=== PATIENT | female | born 1980 | race African-American/Black ===

== ENCOUNTER 2018-10-06 22:49 | Inpatient (IN) | payer MEDICAID ==
[~2018-10-06 22:49] MED LIST: CARBOPROST 250 MCG INJ
[2018-10-06] MEDS ORDERED: LACTATED RINGER'S 1,000 ML IV (23:38)
[2018-10-07] MEDS ORDERED: BUTORPHANOL 2 MG INJ IV
[2018-10-07] MEDS ORDERED: LIDOCAINE 1% (MPF) 30 ML INJ INJ
[2018-10-07] MEDS ORDERED: OXYTOCIN 30 UNITS/LR 500 ML IV
[2018-10-07] MEDS ORDERED: MINERAL OIL LIGHT 10 ML VIAL TOP
[2018-10-07] MEDS ORDERED: METHYLERGONOVINE 0.2 MG INJ IM
[2018-10-07] MEDS: LACTATED RINGER'S 1,000 ML IV ×4 (00:19→15:21)
[2018-10-07 00:43] LABS: ADD MAN DIFF? NO
[2018-10-07 00:50] LABS: BASOPHILS % 0.2 % (0.0-2.0); EOSINOPHILS # 0.1 10^3/ul (0.0-0.5); EOSINOPHILS % 1.7 % (0.0-7.0); HEMATOCRIT 35.6 % (37.0-47.0); HEMOGLOBIN 11.7 g/dl (12.0-16.0); LYMPHOCYTES # 1.2 10^3/ul (0.8-2.9); LYMPHOCYTES % 23.6 % (15.0-51.0); MEAN CORPUSCULAR HEMOGLOBIN 27.6 pg (29.0-33.0); MEAN CORPUSCULAR HGB CONC 32.9 g/dl (32.0-37.0); MEAN PLATELET VOLUME 11.6 fl (7.4-10.4); MONOCYTE # 0.4 10^3/ul (0.3-0.9); MONOCYTES % 8.5 % (0.0-11.0); NEUTROPHIL # 3.4 10^3/ul (1.6-7.5); NEUTROPHILS % 65.8 % (39.0-77.0); PLATELET COUNT 185 10^3/UL (140-415); RED BLOOD COUNT 4.24 10^6/ul (4.20-5.40); RED CELL DISTRIBUTION WIDTH 15.3 % (11.5-14.5)
[2018-10-07 00:50] LABS: WHITE BLOOD COUNT 5.2 10^3/ul (4.8-10.8)
[2018-10-07 01:12] LABS: INR 0.85; PARTIAL THROMBOPLASTIN TIME 26.7 Sec (23.0-35.0); PROTIME 11.7 Sec (11.9-14.9); PT RATIO 0.9
[2018-10-07] MEDS: OXYTOCIN 30 UNITS/LR 500 ML IV ×3 (01:36→15:04)
[2018-10-07 01:40] LABS: HEPATITIS B SURFACE ANTIGEN NEGATIVE (NEGATIVE)
[2018-10-07] MEDS ORDERED: FENTAnyl 50 MCG/ML VIAL (11:48)
[2018-10-07] MEDS ORDERED: FENTAnyl 2MCG/ML-ROPIV 0.2% 100 ML (11:48)
[2018-10-07] MEDS: MISOPROSTOL 200 MCG TAB PR ×2 (13:03→13:43)
[2018-10-07] MEDS: CARBOPROST 250 MCG INJ IM (13:39)
[2018-10-07 14:01] LABS: ADD MAN DIFF? NO
[2018-10-07 14:03] LABS: WHITE BLOOD COUNT 17.5 10^3/ul (4.8-10.8)
[2018-10-07 14:03] LABS: BASOPHILS % 0.2 % (0.0-2.0); EOSINOPHILS # 0.1 10^3/ul (0.0-0.5); EOSINOPHILS % 0.8 % (0.0-7.0); HEMATOCRIT 35.4 % (37.0-47.0); HEMOGLOBIN 11.9 g/dl (12.0-16.0); LYMPHOCYTES # 1.7 10^3/ul (0.8-2.9); LYMPHOCYTES % 9.4 % (15.0-51.0); MEAN CORPUSCULAR HEMOGLOBIN 28.3 pg (29.0-33.0); MEAN CORPUSCULAR HGB CONC 33.6 g/dl (32.0-37.0); MEAN CORPUSCULAR VOLUME 84.3 fl (82.0-101.0); MEAN PLATELET VOLUME 10.5 fl (7.4-10.4); MONOCYTE # 0.4 10^3/ul (0.3-0.9); MONOCYTES % 2.5 % (0.0-11.0); NEUTROPHIL # 15.1 10^3/ul (1.6-7.5); NEUTROPHILS % 86.5 % (39.0-77.0); PLATELET COUNT 153 10^3/UL (140-415); RED CELL DISTRIBUTION WIDTH 15.8 % (11.5-14.5)
[2018-10-07] MEDS ORDERED: ONDANSETRON 4 MG INJ (14:12)
[2018-10-07 14:21] LABS: ALBUMIN 3.6 g/dl (3.3-4.9); ALBUMIN/GLOBULIN RATIO 1.12; ALKALINE PHOSPHATASE 184 IU/L (42-121); ANION GAP 7 (5-13); ASPARTATE AMINO TRANSFERASE 32 IU/L (15-46); BILIRUBIN,INDIRECT 1.8 mg/dl (0-1.1); BILIRUBIN,TOTAL 1.8 mg/dl (0.2-1.3); BLOOD UREA NITROGEN 7 mg/dl (7-20); CALCIUM 9.4 mg/dl (8.4-10.2); CARBON DIOXIDE 23 mmol/L (21-31); CHLORIDE 107 mmol/L (97-110); CREATININE 0.67 mg/dl (0.44-1.00); Estimated GFR > 60 mL/min (>60); GLUCOSE 93 mg/dl (70-220); POTASSIUM 4.3 mmol/L (3.5-5.1); SODIUM 137 mmol/L (135-144); TOTAL PROTEIN 6.8 g/dl (6.1-8.1); URIC ACID 5.6 mg/dl (3.1-7.9)
[2018-10-07 14:24] LABS: INR 1.63; PROTIME 19.4 Sec (11.9-14.9); PT RATIO 1.5
[2018-10-07 14:25] LABS: ALANINE AMINOTRANSFERASE < 6 IU/L (13-69); PARTIAL THROMBOPLASTIN TIME 56.8 Sec (23.0-35.0)
[2018-10-07] MEDS: FAMOTIDINE 20 MG INJ IV (14:37)
[2018-10-07] MEDS: ONDANSETRON 4 MG INJ IV (14:38)
[2018-10-07] MEDS ORDERED: METOCLOPRAMIDE 10 MG INJ (14:51)
[2018-10-07 15:03] LABS: IMMEDIATE SPIN CROSSMATCH 1
[2018-10-07 15:10] LABS: RAPID PLASMA REAGIN NONREACTIVE (NR)
[2018-10-07] MEDS: FENTAnyl 50 MCG/ML VIAL IV (15:22)
[2018-10-07] MEDS: METOCLOPRAMIDE 10 MG INJ IV (15:22)
[2018-10-07] MEDS ORDERED: LIDOCAINE 1% (MDV) 20 ML INJ (15:38)
[2018-10-07] MEDS ORDERED: MIDAZOLAM 1 MG/ML 2 ML INJ ×2 (15:38)
[2018-10-07] MEDS ORDERED: SUCCINYLCHOLINE CHLORIDE 100 MG/5 ML SYG IV (15:38)
[2018-10-07] MEDS ORDERED: ETOMIDATE 20 MG INJ (15:38)
[2018-10-07] MEDS ORDERED: ROCURONIUM 50 MG INJ (15:38)
[2018-10-07] MEDS ORDERED: PHENYLephrine (100 MCG/ML) 10ML SYG (16:25)
[2018-10-07] MEDS ORDERED: CA CHLORIDE 10% 10 ML SYRINGE (16:26)
[2018-10-07 16:32] LABS: ABNORMAL IP MESSAGE 1; HEMATOCRIT 21.2 % (37.0-47.0); HEMOGLOBIN 7.1 g/dl (12.0-16.0); MEAN CORPUSCULAR HEMOGLOBIN 27.7 pg (29.0-33.0); MEAN CORPUSCULAR HGB CONC 33.5 g/dl (32.0-37.0); MEAN CORPUSCULAR VOLUME 82.8 fl (82.0-101.0); MEAN PLATELET VOLUME 10.8 fl (7.4-10.4); PLATELET COUNT 107 10^3/UL (140-415); RED BLOOD COUNT 2.56 10^6/ul (4.20-5.40); RED CELL DISTRIBUTION WIDTH 14.9 % (11.5-14.5)
[2018-10-07 16:32] LABS: WHITE BLOOD COUNT 14.5 10^3/ul (4.8-10.8)
[2018-10-07 16:39] LABS: POSITIVE DIFF @See below
[2018-10-07 16:41] LABS: ADD MAN DIFF? YES
[2018-10-07 16:54] LABS: INR 1.65; PROTIME 19.6 Sec (11.9-14.9); PT RATIO 1.5
[2018-10-07 16:55] LABS: PARTIAL THROMBOPLASTIN TIME 45.3 Sec (23.0-35.0)
[2018-10-07 17:10] LABS: FIBRINOGEN < 60.0 mg/dl (207-461)
[2018-10-07] MEDS ORDERED: THROMBIN 5000 UNIT VIAL (17:18)
[2018-10-07] MEDS ORDERED: DEXAMETHASONE 4 MG/ML 1 ML INJ (17:20)
[2018-10-07 17:21] LABS: ANISOCYTOSIS 2+ (0-0); GIANT THROMBO% (M) 2 % (0-0); LYMPHOCYTES % (M) 7 % (15-51); MICROCYTOSIS 2+ (0-0); MONOCYTE #M 0.2 10^3/ul (0.3-0.9); MONOCYTES % (M) 2 % (0-11); SEGMENTED NEUTROPHILS (M) % 91 % (39-77)
[2018-10-07] MEDS ORDERED: HYDROmorphONE 2 MG/ML SYG (17:39)
[2018-10-07] MEDS ORDERED: ROPIVACAINE 0.5 % 30 ML VIAL (17:44)
[2018-10-07 17:50] LABS: ADD MAN DIFF? NO
[2018-10-07 17:55] LABS: ABNORMAL IP MESSAGE 1; BASOPHILS % 0.2 % (0.0-2.0); EOSINOPHILS % 0.1 % (0.0-7.0); HEMATOCRIT 25.3 % (37.0-47.0); HEMOGLOBIN 8.6 g/dl (12.0-16.0); LYMPHOCYTES # 0.6 10^3/ul (0.8-2.9); LYMPHOCYTES % 3.1 % (15.0-51.0); MEAN CORPUSCULAR HEMOGLOBIN 29.1 pg (29.0-33.0); MEAN CORPUSCULAR VOLUME 85.5 fl (82.0-101.0); MEAN PLATELET VOLUME 10.2 fl (7.4-10.4); MONOCYTES % 5.5 % (0.0-11.0); NEUTROPHIL # 16.8 10^3/ul (1.6-7.5); NEUTROPHILS % 90.3 % (39.0-77.0); PLATELET COUNT 85 10^3/UL (140-415); RED BLOOD COUNT 2.96 10^6/ul (4.20-5.40); RED CELL DISTRIBUTION WIDTH 14.6 % (11.5-14.5)
[2018-10-07 17:55] LABS: WHITE BLOOD COUNT 18.6 10^3/ul (4.8-10.8)
[2018-10-07 18:10] LABS: ALANINE AMINOTRANSFERASE 23 IU/L (13-69); ALBUMIN 1.6 g/dl (3.3-4.9); ALBUMIN/GLOBULIN RATIO 0.84; ALKALINE PHOSPHATASE 58 IU/L (42-121); ANION GAP 2 (5-13); ASPARTATE AMINO TRANSFERASE 28 IU/L (15-46); BILIRUBIN,INDIRECT 1.5 mg/dl (0-1.1); BILIRUBIN,TOTAL 1.5 mg/dl (0.2-1.3); BLOOD UREA NITROGEN 9 mg/dl (7-20); CALCIUM 8.5 mg/dl (8.4-10.2); CARBON DIOXIDE 21 mmol/L (21-31); CHLORIDE 113 mmol/L (97-110); CREATININE 0.49 mg/dl (0.44-1.00); Estimated GFR > 60 mL/min (>60); GLUCOSE 139 mg/dl (70-220); POTASSIUM 4.1 mmol/L (3.5-5.1); SODIUM 136 mmol/L (135-144); TOTAL PROTEIN 3.5 g/dl (6.1-8.1)
[2018-10-07] MEDS ORDERED: SUGAMMADEX SODIUM 200 MG/2 ML VIAL IV (18:10)
[2018-10-07 18:14] LABS: INR 1.57; PARTIAL THROMBOPLASTIN TIME 35.2 Sec (23.0-35.0); PROTIME 18.9 Sec (11.9-14.9); PT RATIO 1.5
[2018-10-07] MEDS ORDERED: HYDROmorphONE 1 MG/5 ML IV SYRINGE IV ×3 (19:00)
[2018-10-07] MEDS ORDERED: METOCLOPRAMIDE 10 MG INJ IV (19:00)
[2018-10-07] MEDS ORDERED: ONDANSETRON 4 MG INJ IV (19:00)
[2018-10-07] MEDS ORDERED: MEPERIDINE 25 MG INJ IV (19:00)
[2018-10-07] MEDS ORDERED: HYDROCODONE/APAP (5/325) TAB PO ×2 (21:00)
[2018-10-07 23:53] LABS: ADD MAN DIFF? NO
[2018-10-08 00:05] LABS: ALANINE AMINOTRANSFERASE 28 IU/L (13-69); ALBUMIN 2.1 g/dl (3.3-4.9); ALBUMIN/GLOBULIN RATIO 0.95; ALKALINE PHOSPHATASE 63 IU/L (42-121); ANION GAP 2 (5-13); ASPARTATE AMINO TRANSFERASE 32 IU/L (15-46); BLOOD UREA NITROGEN 8 mg/dl (7-20); CALCIUM 8.2 mg/dl (8.4-10.2); CARBON DIOXIDE 24 mmol/L (21-31); CHLORIDE 110 mmol/L (97-110); CREATININE 0.54 mg/dl (0.44-1.00); Estimated GFR > 60 mL/min (>60); GLUCOSE 123 mg/dl (70-220); POTASSIUM 4.2 mmol/L (3.5-5.1); SODIUM 136 mmol/L (135-144); TOTAL PROTEIN 4.3 g/dl (6.1-8.1)
[2018-10-08 00:07] LABS: INR 1.13; PROTIME 14.6 Sec (11.9-14.9); PT RATIO 1.1
[2018-10-08 00:08] LABS: PARTIAL THROMBOPLASTIN TIME 27.5 Sec (23.0-35.0)
[2018-10-08 00:19] LABS: IMMEDIATE SPIN CROSSMATCH 1 10
[2018-10-08] MEDS: morphine 2 MG INJ IV (00:34)
[2018-10-08] MEDS: LACTATED RINGER'S 1,000 ML IV ×2 (00:44→15:53)
[2018-10-08 00:45] LABS: HEMATOCRIT 22.3 % (37.0-47.0); HEMOGLOBIN 7.7 g/dl (12.0-16.0); MEAN CORPUSCULAR HEMOGLOBIN 28.9 pg (29.0-33.0); MEAN CORPUSCULAR HGB CONC 34.5 g/dl (32.0-37.0); MEAN CORPUSCULAR VOLUME 83.8 fl (82.0-101.0); RED BLOOD COUNT 2.66 10^6/ul (4.20-5.40); RED CELL DISTRIBUTION WIDTH 14.6 % (11.5-14.5)
[2018-10-08 00:45] LABS: WHITE BLOOD COUNT 13.4 10^3/ul (4.8-10.8)
[2018-10-08 00:46] LABS: BASOPHILS % 0.1 % (0.0-2.0); LYMPHOCYTES # 0.6 10^3/ul (0.8-2.9); LYMPHOCYTES % 4.3 % (15.0-51.0); MEAN PLATELET VOLUME 10.5 fl (7.4-10.4); MONOCYTE # 0.4 10^3/ul (0.3-0.9); MONOCYTES % 3.1 % (0.0-11.0); NEUTROPHIL # 12.3 10^3/ul (1.6-7.5); NEUTROPHILS % 92.1 % (39.0-77.0); PLATELET COUNT 128 10^3/UL (140-415)
[2018-10-08] MEDS ORDERED: HYDROmorphONE 0.2 MG/ML PCA IV (01:30)
[2018-10-08] MEDS ORDERED: morphine 4 MG/ML VIAL IV (01:30)
[2018-10-08] MEDS ORDERED: ACETAMINOPHEN 500 MG TAB PO (02:00)
[2018-10-08] MEDS ORDERED: ONDANSETRON 4 MG INJ IV (02:00)
[2018-10-08] MEDS ORDERED: NALOXONE (0.4 MG/ML) INJ IV (02:00)
[2018-10-08 02:30] LABS: ADD UMIC NO; UR ASCORBIC ACID NEGATIVE (NEGATIVE); UR BILIRUBIN (Dip) NEGATIVE (NEGATIVE); UR BLOOD (Dip) NEGATIVE (NEGATIVE); UR CLARITY CLEAR (CLEAR); UR COLOR YELLOW (YELLOW); UR GLUCOSE (Dip) NEGATIVE (NEGATIVE); UR KETONES (Dip) NEGATIVE (NEGATIVE); UR LEUKOCYTE ESTERASE (Dip) NEGATIVE Leu/ul (NEGATIVE); UR NITRITE (Dip) NEGATIVE (NEGATIVE); UR SPECIFIC GRAVITY (Dip) 1.011 (1.003-1.030); UR TOTAL PROTEIN (Dip) NEGATIVE (NEGATIVE); UR UROBILINOGEN (Dip) NEGATIVE (NEGATIVE)
[2018-10-08 02:50] LABS: TYPE AND SCREEN 1
[2018-10-08] MEDS: HYDROmorphONE 0.2 MG/ML PCA IV ×2 (02:59→13:06)
[2018-10-08 05:15] LABS: ABNORMAL IP MESSAGE 1; HEMATOCRIT 17.3 % (37.0-47.0); MEAN CORPUSCULAR HEMOGLOBIN 29.1 pg (29.0-33.0); MEAN CORPUSCULAR HGB CONC 34.7 g/dl (32.0-37.0); MEAN PLATELET VOLUME 10.6 fl (7.4-10.4); PLATELET COUNT 108 10^3/UL (140-415); RED BLOOD COUNT 2.06 10^6/ul (4.20-5.40); RED CELL DISTRIBUTION WIDTH 14.4 % (11.5-14.5)
[2018-10-08 05:15] LABS: WHITE BLOOD COUNT 10.9 10^3/ul (4.8-10.8)
[2018-10-08 05:19] LABS: PLATELET COUNT 108 10^3/UL (140-415)
[2018-10-08 05:30] LABS: POSITIVE DIFF @See below
[2018-10-08 05:32] LABS: ADD MAN DIFF? YES
[2018-10-08 05:35] LABS: INR 1.09; PROTIME 14.2 Sec (11.9-14.9); PT RATIO 1.1
[2018-10-08 05:36] LABS: PARTIAL THROMBOPLASTIN TIME 28.3 Sec (23.0-35.0)
[2018-10-08 05:37] LABS: INR 1.08; PROTIME 14.1 Sec (11.9-14.9); PT RATIO 1.1
[2018-10-08 05:40] LABS: PARTIAL THROMBOPLASTIN TIME 33.7 Sec (23.0-35.0)
[2018-10-08 05:45] LABS: ALANINE AMINOTRANSFERASE 27 IU/L (13-69); ALBUMIN 2.1 g/dl (3.3-4.9); ALBUMIN/GLOBULIN RATIO 0.95; ALKALINE PHOSPHATASE 58 IU/L (42-121); ANION GAP 1 (5-13); ASPARTATE AMINO TRANSFERASE 30 IU/L (15-46); BILIRUBIN,INDIRECT 0.9 mg/dl (0-1.1); BILIRUBIN,TOTAL 0.9 mg/dl (0.2-1.3); BLOOD UREA NITROGEN 7 mg/dl (7-20); CALCIUM 8.1 mg/dl (8.4-10.2); CARBON DIOXIDE 27 mmol/L (21-31); CHLORIDE 109 mmol/L (97-110); CREATININE 0.57 mg/dl (0.44-1.00); Estimated GFR > 60 mL/min (>60); GLUCOSE 107 mg/dl (70-220); POTASSIUM 3.8 mmol/L (3.5-5.1); SODIUM 137 mmol/L (135-144); TOTAL PROTEIN 4.3 g/dl (6.1-8.1)
[2018-10-08 07:37] LABS: BAND NEUTROPHILS #M 0.1 10^3/ul (0.0-0.6); BAND NEUTROPHILS % (M) 1 % (0-4); GIANT THROMBO% (M) 1 % (0-0); LYMPHOCYTES % (M) 10 % (15-51); MONOCYTE #M 0.1 10^3/ul (0.3-0.9); MONOCYTES % (M) 1 % (0-11); PLATELET ESTIMATE DECREASED; SEG NEUT #M 9.6 10^3/ul (1.6-7.5); SEGMENTED NEUTROPHILS (M) % 88 % (39-77); SMUDGE%M 31 % (0-0)
[2018-10-08 09:21] LABS: IMMEDIATE SPIN CROSSMATCH 1
[2018-10-08] MEDS: PIPER-TAZO 3.375 GM IV (PMX) 100 ML IVPB ×2 (13:30→20:44)
[2018-10-08 15:17] LABS: ABNORMAL IP MESSAGE 1; HEMATOCRIT 23.2 % (37.0-47.0); MEAN CORPUSCULAR HEMOGLOBIN 28.6 pg (29.0-33.0); MEAN CORPUSCULAR HGB CONC 34.5 g/dl (32.0-37.0); MEAN CORPUSCULAR VOLUME 82.9 fl (82.0-101.0); PLATELET COUNT 83 10^3/UL (140-415); RED CELL DISTRIBUTION WIDTH 14.2 % (11.5-14.5)
[2018-10-08 15:17] LABS: WHITE BLOOD COUNT 8.7 10^3/ul (4.8-10.8)
[2018-10-08 15:30] LABS: POSITIVE DIFF @See below
[2018-10-08 15:31] LABS: ADD MAN DIFF? YES
[2018-10-08] MEDS: DIPHENHYDRAMINE 50 MG INJ IV (15:53)
[2018-10-08 17:07] LABS: ANISOCYTOSIS 1+ (0-0); GIANT THROMBO% (M) 1 % (0-0); LYMPHOCYTES #M 0.9 10^3/ul (0.8-2.9); LYMPHOCYTES % (M) 11 % (15-51); MICROCYTOSIS 1+ (0-0); MONOCYTE #M 0.5 10^3/ul (0.3-0.9); MONOCYTES % (M) 6 % (0-11); PLATELET ESTIMATE DECREASED; POLYCHROMASIA 1+ (0-0); SEGMENTED NEUTROPHILS (M) % 83 % (39-77); SMUDGE%M 3 % (0-0)
[2018-10-08] MEDS: KETOROLAC 30 MG INJ IV (17:18)
[2018-10-08 17:42] LABS: LACTATE DEHYDROGENASE 739 IU/L (313-618)
[2018-10-09] MEDS ORDERED: LANOLIN HPA 1 PKT TOP (01:00)
[2018-10-09] MEDS: HYDROCODONE/APAP (5/325) TAB PO ×6 (01:17→21:45)
[2018-10-09] MEDS: CEFAZOLIN 2 GM/50 ML (PMX) 50 ML IVPB ×3 (01:24→16:44)
[2018-10-09] MEDS: KETOROLAC 30 MG INJ IV ×2 (06:40→22:41)
[2018-10-09] MEDS: LACTATED RINGER'S 1,000 ML IV ×2 (06:41→13:30)
[2018-10-09 06:52] LABS: WHITE BLOOD COUNT 8.7 10^3/ul (4.8-10.8)
[2018-10-09 06:52] LABS: ABNORMAL IP MESSAGE 1; ADD MAN DIFF? NO; BASOPHILS % 0.1 % (0.0-2.0); EOSINOPHILS # 0.1 10^3/ul (0.0-0.5); EOSINOPHILS % 0.6 % (0.0-7.0); HEMATOCRIT 21.6 % (37.0-47.0); HEMOGLOBIN 7.4 g/dl (12.0-16.0); LYMPHOCYTES # 0.9 10^3/ul (0.8-2.9); LYMPHOCYTES % 9.8 % (15.0-51.0); MEAN CORPUSCULAR HEMOGLOBIN 28.9 pg (29.0-33.0); MEAN CORPUSCULAR HGB CONC 34.3 g/dl (32.0-37.0); MEAN CORPUSCULAR VOLUME 84.4 fl (82.0-101.0); MEAN PLATELET VOLUME 11.2 fl (7.4-10.4); MONOCYTE # 0.5 10^3/ul (0.3-0.9); MONOCYTES % 5.9 % (0.0-11.0); NEUTROPHIL # 7.3 10^3/ul (1.6-7.5); NEUTROPHILS % 83.1 % (39.0-77.0); RED BLOOD COUNT 2.56 10^6/ul (4.20-5.40); RED CELL DISTRIBUTION WIDTH 14.6 % (11.5-14.5)
[2018-10-09 06:58] LABS: PLATELET COUNT 79 10^3/UL (140-415); POSITIVE DIFF @See below
[2018-10-09 07:15] LABS: INR 0.94; PROTIME 12.7 Sec (11.9-14.9)
[2018-10-09 07:16] LABS: PARTIAL THROMBOPLASTIN TIME 28.7 Sec (23.0-35.0)
[2018-10-09 07:28] LABS: ANION GAP 2 (5-13); BLOOD UREA NITROGEN 7 mg/dl (7-20); CALCIUM 8.3 mg/dl (8.4-10.2); CARBON DIOXIDE 29 mmol/L (21-31); CHLORIDE 108 mmol/L (97-110); CREATININE 0.68 mg/dl (0.44-1.00); Estimated GFR > 60 mL/min (>60); GLUCOSE 99 mg/dl (70-220); MAGNESIUM 1.5 mg/dl (1.7-2.5); PHOSPHORUS 3.8 mg/dl (2.5-4.9); POTASSIUM 3.6 mmol/L (3.5-5.1); SODIUM 139 mmol/L (135-144)
[2018-10-09] MEDS ORDERED: DIPHTH/TET/ACEL PERTUSS (ADULT) 0.5 ML VIAL IM* (11:00)
[2018-10-09 12:26] LABS: HAPTOGLOBIN 20 mg/dL (43-212)
[2018-10-09] MEDS ORDERED: MAGNESIUM SULFATE 3 GM in DEXTROSE 5% 100 ML IVPB (17:30)
[2018-10-09] MEDS: MAGNESIUM SULFATE 1 GM/D5W 100 ML IVPB ×3 (18:12→21:44)
[2018-10-10] MEDS: HYDROCODONE/APAP (5/325) TAB PO ×5 (01:52→20:25)
[2018-10-10 06:15] LABS: ABNORMAL IP MESSAGE 1; HEMATOCRIT 19.5 % (37.0-47.0); MEAN CORPUSCULAR HGB CONC 34.9 g/dl (32.0-37.0); MEAN CORPUSCULAR VOLUME 85.9 fl (82.0-101.0); PLATELET COUNT 85 10^3/UL (140-415); RED BLOOD COUNT 2.27 10^6/ul (4.20-5.40); RED CELL DISTRIBUTION WIDTH 14.4 % (11.5-14.5)
[2018-10-10 06:15] LABS: WHITE BLOOD COUNT 6.7 10^3/ul (4.8-10.8)
[2018-10-10 06:21] LABS: HEMOGLOBIN 6.8 g/dl (12.0-16.0); POSITIVE DIFF @See below
[2018-10-10 06:22] LABS: ADD MAN DIFF? YES
[2018-10-10 06:27] LABS: ALANINE AMINOTRANSFERASE 20 IU/L (13-69); ALBUMIN 2.3 g/dl (3.3-4.9); ALBUMIN/GLOBULIN RATIO 0.92; ALKALINE PHOSPHATASE 70 IU/L (42-121); ANION GAP 3 (5-13); ASPARTATE AMINO TRANSFERASE 22 IU/L (15-46); BILIRUBIN,INDIRECT 0.4 mg/dl (0-1.1); BILIRUBIN,TOTAL 0.4 mg/dl (0.2-1.3); BLOOD UREA NITROGEN 5 mg/dl (7-20); CALCIUM 7.8 mg/dl (8.4-10.2); CARBON DIOXIDE 28 mmol/L (21-31); CHLORIDE 107 mmol/L (97-110); CREATININE 0.61 mg/dl (0.44-1.00); Estimated GFR > 60 mL/min (>60); GLUCOSE 76 mg/dl (70-220); LACTATE DEHYDROGENASE 552 IU/L (313-618); POTASSIUM 3.5 mmol/L (3.5-5.1); SODIUM 138 mmol/L (135-144); TOTAL PROTEIN 4.8 g/dl (6.1-8.1)
[2018-10-10 06:30] LABS: INR 0.99; PARTIAL THROMBOPLASTIN TIME 29.5 Sec (23.0-35.0); PROTIME 13.2 Sec (11.9-14.9)
[2018-10-10 08:16] LABS: D-DIMER > 10000.00 ng/ml (<460)
[2018-10-10 09:44] LABS: ANISOCYTOSIS 1+ (0-0); EOSINOPHILS % (M) 1 % (0-7); GIANT THROMBO% (M) 18 % (0-0); LYMPHOCYTES #M 0.7 10^3/ul (0.8-2.9); LYMPHOCYTES % (M) 11 % (15-51); MONOCYTE #M 0.3 10^3/ul (0.3-0.9); MONOCYTES % (M) 5 % (0-11); PLATELET ESTIMATE DECREASED; POIKILOCYTOSIS 1+ (0-0); SEGMENTED NEUTROPHILS (M) % 83 % (39-77); SMUDGE%M 5 % (0-0)
[2018-10-10] MEDS: BISACODYL 10 MG SUPP PR (11:07)
[2018-10-11] MEDS: KETOROLAC 30 MG INJ IV (00:42)
[2018-10-11] MEDS: HYDROCODONE/APAP (5/325) TAB PO ×2 (08:50→14:57)
[2018-10-11] MEDS: MEASLES,MUMPS,RUBELLA VACCINE INJ SC* (09:00)
[2018-10-11 09:14] LABS: ADD MAN DIFF? NO
[2018-10-11 09:18] LABS: WHITE BLOOD COUNT 6.8 10^3/ul (4.8-10.8)
[2018-10-11 09:18] LABS: BASOPHILS % 0.1 % (0.0-2.0); EOSINOPHILS # 0.1 10^3/ul (0.0-0.5); EOSINOPHILS % 1.6 % (0.0-7.0); HEMATOCRIT 22.4 % (37.0-47.0); HEMOGLOBIN 7.4 g/dl (12.0-16.0); LYMPHOCYTES # 0.8 10^3/ul (0.8-2.9); MEAN CORPUSCULAR HEMOGLOBIN 28.5 pg (29.0-33.0); MEAN CORPUSCULAR VOLUME 86.2 fl (82.0-101.0); MEAN PLATELET VOLUME 10.2 fl (7.4-10.4); MONOCYTE # 0.3 10^3/ul (0.3-0.9); MONOCYTES % 4.7 % (0.0-11.0); NEUTROPHIL # 5.6 10^3/ul (1.6-7.5); NEUTROPHILS % 82.2 % (39.0-77.0); PLATELET COUNT 148 10^3/UL (140-415); RED CELL DISTRIBUTION WIDTH 14.1 % (11.5-14.5)
[2018-10-11] MEDS: DIPHTH/TET/ACEL PERTUSS (ADULT) 0.5 ML VIAL IM* (12:11)
[2018-10-11] MEDS: CYANOCOBALAMIN 1000 MCG INJ IM (12:13)
== END 2018-10-11 16:40 | disposition home or self-care (01) | DRG 768 ==
LOC: L-D 10-07 15:36 → ICU 10-07 18:28 → PP1 10-08 22:24
PROVIDERS: Obstetrics & Gynecology
PROC: 10E0XZZ Delivery of Products of Conception, External Approach (ICD-10-PCS; principal; 2018-10-07)
PROC: 0W3R7ZZ Control Bleeding in Genitourinary Tract, Via Natural or Artificial Opening (ICD-10-PCS; 2018-10-07)
PROC: 10907ZC Drainage of Amniotic Fluid, Therapeutic from Products of Conception, Via Natural or Artificial Opening (ICD-10-PCS; 2018-10-07)
PROC: 0UJD7ZZ Inspection of Uterus and Cervix, Via Natural or Artificial Opening (ICD-10-PCS; 2018-10-07)
PROC: 0UJH7ZZ Inspection of Vagina and Cul-de-sac, Via Natural or Artificial Opening (ICD-10-PCS; 2018-10-07)
PROC: 0HQ9XZZ Repair Perineum Skin, External Approach (ICD-10-PCS; 2018-10-07)
PROC: 30233K1 Transfusion of Nonautologous Frozen Plasma into Peripheral Vein, Percutaneous Approach (ICD-10-PCS; 2018-10-07)
PROC: 30233N1 Transfusion of Nonautologous Red Blood Cells into Peripheral Vein, Percutaneous Approach (ICD-10-PCS; 2018-10-07)
PROC: 30233R1 Transfusion of Nonautologous Platelets into Peripheral Vein, Percutaneous Approach (ICD-10-PCS; 2018-10-07)
PROC: 30233M1 Transfusion of Nonautologous Plasma Cryoprecipitate into Peripheral Vein, Percutaneous Approach (ICD-10-PCS; 2018-10-07)
PROC: 0UT70ZZ Resection of Bilateral Fallopian Tubes, Open Approach (ICD-10-PCS; 2018-10-08)
PROC: 0UT90ZL Resection of Uterus, Supracervical, Open Approach (ICD-10-PCS; 2018-10-08)
DX: O36.63X0 Maternal care for excessive fetal growth, third trimester, not applicable or unspecified (principal); Z37.0 Single live birth; D65 Disseminated intravascular coagulation [defibrination syndrome]; D62 Acute posthemorrhagic anemia; O72.1 Other immediate postpartum hemorrhage; O70.0 First degree perineal laceration during delivery; O72.3 Postpartum coagulation defects; O90.81 Anemia of the puerperium; Z3A.39 39 weeks gestation of pregnancy; Z23 Encounter for immunization
CPT/HCPCS: 36430; 76815; 80048; 80053; 81003; 83010; 83615; 83735; 84100; 84560; 85025; 85049; 85378; 85384; 85610; 85670; 85730; 86592; 86644; 86850; 86900; 86901; 86920; 87340; 88302; 88305; 90715

== ENCOUNTER 2018-10-20 14:38 | Emergency (ER) | payer MEDICAID ==
[2018-10-20 17:01] LABS: ADD MAN DIFF? NO
[2018-10-20 17:05] LABS: WHITE BLOOD COUNT 7.2 10^3/ul (4.8-10.8)
[2018-10-20 17:05] LABS: BASOPHILS % 0.6 % (0.0-2.0); EOSINOPHILS # 0.1 10^3/ul (0.0-0.5); EOSINOPHILS % 1.1 % (0.0-7.0); HEMATOCRIT 25.6 % (37.0-47.0); LYMPHOCYTES # 1.2 10^3/ul (0.8-2.9); MEAN CORPUSCULAR HEMOGLOBIN 28.5 pg (29.0-33.0); MEAN CORPUSCULAR HGB CONC 31.3 g/dl (32.0-37.0); MEAN CORPUSCULAR VOLUME 91.1 fl (82.0-101.0); MEAN PLATELET VOLUME 9.9 fl (7.4-10.4); MONOCYTE # 0.7 10^3/ul (0.3-0.9); MONOCYTES % 9.4 % (0.0-11.0); NEUTROPHIL # 5.1 10^3/ul (1.6-7.5); NEUTROPHILS % 70.8 % (39.0-77.0); NUCLEATED RED BLOOD CELLS% 0.6 /100WBC (0.0-0.0); PLATELET COUNT 322 10^3/UL (140-415); RED BLOOD COUNT 2.81 10^6/ul (4.20-5.40); RED CELL DISTRIBUTION WIDTH 17.5 % (11.5-14.5)
[2018-10-20 17:20] LABS: IRON 104 ug/dl (35-150)
[2018-10-20 17:29] LABS: % IRON SATURATION 29 % SAT (22-52); TOTAL IRON BINDING CAPACITY 361 ug/dl (241-421)
[2018-10-20 17:33] LABS: ADD UMIC YES; UR ASCORBIC ACID NEGATIVE (NEGATIVE); UR BACTERIA FEW /HPF (NONE SEEN); UR BILIRUBIN (Dip) NEGATIVE (NEGATIVE); UR BLOOD (Dip) 3+ mg/dL (NEGATIVE); UR CLARITY CLOUDY (CLEAR); UR COLOR AMBER (YELLOW); UR GLUCOSE (Dip) NEGATIVE (NEGATIVE); UR KETONES (Dip) NEGATIVE (NEGATIVE); UR LEUKOCYTE ESTERASE (Dip) NEGATIVE Leu/ul (NEGATIVE); UR NITRITE (Dip) NEGATIVE (NEGATIVE); UR RBC 1 /HPF (0-5); UR SPECIFIC GRAVITY (Dip) 1.011 (1.003-1.030); UR SQUAMOUS EPITHELIAL CELL FEW /HPF (FEW); UR TOTAL PROTEIN (Dip) 2+ mg/dl (NEGATIVE); UR UROBILINOGEN (Dip) 1+ mg/dL (NEGATIVE); UR WBC 7 /HPF (0-5)
[2018-10-20 17:53] LABS: ALANINE AMINOTRANSFERASE 23 IU/L (13-69); ALBUMIN 3.9 g/dl (3.3-4.9); ALBUMIN/GLOBULIN RATIO 1.11; ALKALINE PHOSPHATASE 70 IU/L (42-121); ANION GAP 7 (5-13); ASPARTATE AMINO TRANSFERASE 64 IU/L (15-46); BILIRUBIN,INDIRECT 1.8 mg/dl (0-1.1); BILIRUBIN,TOTAL 1.8 mg/dl (0.2-1.3); BLOOD UREA NITROGEN 16 mg/dl (7-20); CARBON DIOXIDE 27 mmol/L (21-31); CHLORIDE 107 mmol/L (97-110); CREATININE 0.89 mg/dl (0.44-1.00); Estimated GFR > 60 mL/min (>60); GLUCOSE 91 mg/dl (70-220); POTASSIUM 4.2 mmol/L (3.5-5.1); SODIUM 141 mmol/L (135-144); TOTAL PROTEIN 7.4 g/dl (6.1-8.1)
[2018-10-20 18:06] LABS: CREATINE KINASE 182 IU/L (23-200)
[2018-10-20 18:16] LABS: CK-MB 0.55 ng/ml (0.0-2.4)
[2018-10-20] MEDS: IOHEXOL 300MG/ML 150 ML BTL (20:20)
[2018-10-20] MEDS: SOD CHLORIDE 0.9% 100 ML (20:20)
[2018-10-20 22:08] LABS: ADD UMIC YES; UR ASCORBIC ACID NEGATIVE (NEGATIVE); UR BACTERIA FEW /HPF (NONE SEEN); UR BILIRUBIN (Dip) NEGATIVE (NEGATIVE); UR BLOOD (Dip) 3+ mg/dL (NEGATIVE); UR CLARITY CLEAR (CLEAR); UR COLOR AMBER (YELLOW); UR GLUCOSE (Dip) NEGATIVE (NEGATIVE); UR KETONES (Dip) NEGATIVE (NEGATIVE); UR LEUKOCYTE ESTERASE (Dip) NEGATIVE Leu/ul (NEGATIVE); UR MUCUS FEW /HPF (NONE SEEN); UR NITRITE (Dip) NEGATIVE (NEGATIVE); UR RBC 2 /HPF (0-5); UR SPECIFIC GRAVITY (Dip) 1.008 (1.003-1.030); UR TOTAL PROTEIN (Dip) 2+ mg/dl (NEGATIVE); UR UROBILINOGEN (Dip) NEGATIVE (NEGATIVE); UR WBC 3 /HPF (0-5)
== END 2018-10-20 23:24 | disposition home or self-care (01) ==
LOC: FTE 14:38
DX: K59.00 Constipation, unspecified (principal); R82.3 Hemoglobinuria; R80.9 Proteinuria, unspecified
CPT/HCPCS: 72192; 80053; 81001; 82550; 82553; 82728; 83540; 85025; 99284-25